=== PATIENT | male | born 1960 | race Caucasian/White ===

== ENCOUNTER 2023-02-27 07:01 | Outpatient (CLI) | payer BC, SELFPAY | END 2023-02-27 07:02 | disposition home or self-care (01) | PROVIDERS: Visit Provider Internal Medicine | DX: C79.31 Secondary malignant neoplasm of brain (principal) | CPT/HCPCS: 70553; A9575 ==

== ENCOUNTER 2023-05-08 08:55 | Outpatient (CLI) | payer BC, SELFPAY | END 2023-05-08 08:56 | disposition home or self-care (01) | LOC: MRI 09:01 | PROVIDERS: Visit Provider Internal Medicine | DX: C79.31 Secondary malignant neoplasm of brain (principal) | CPT/HCPCS: 70553; A9575 ==

== ENCOUNTER 2023-08-09 14:25 | Outpatient (CLI) | payer BC, SELFPAY | END 2023-08-09 14:26 | disposition home or self-care (01) | LOC: MRI 14:27 | PROVIDERS: Visit Provider Nurse Practitioner | DX: C79.31 Secondary malignant neoplasm of brain (principal) | CPT/HCPCS: 70553; A9575 ==

== ENCOUNTER 2023-10-22 14:34 | Outpatient (CLI) | payer BC, SELFPAY | END 2023-10-22 14:35 | disposition home or self-care (01) | PROVIDERS: Visit Provider Nurse Practitioner | DX: C79.31 Secondary malignant neoplasm of brain (principal) | CPT/HCPCS: 70553; A9575 ==

== ENCOUNTER 2024-01-28 09:49 | Outpatient (CLI) | payer BC, SELFPAY | END 2024-01-28 09:50 | disposition home or self-care (01) | LOC: MRI 09:50 | PROVIDERS: Visit Provider Internal Medicine | DX: C79.31 Secondary malignant neoplasm of brain (principal) | CPT/HCPCS: 70553; A9575 ==